=== PATIENT | female | born 1980 | race American Indian/Alaskan Native ===

== ENCOUNTER 2019-01-11 00:16 | Emergency (ER) | payer OTHER ==
[2019-01-11] MEDS ORDERED: PERCOCET 5/325 PO STA (03:16)
[2019-01-11 04:04] VITALS: BP 138/80
== END 2019-01-11 04:15 | disposition home or self-care (01) ==
LOC: EDSEX → ED 00:16
DX: M54.6 Pain in thoracic spine (principal); V89.2XXA Person injured in unspecified motor-vehicle accident, traffic, initial encounter; Y93.89 Activity, other specified; Y92.488 Other paved roadways as the place of occurrence of the external cause; Y99.8 Other external cause status
CPT/HCPCS: 99282